=== PATIENT | male | born 1985 | race Caucasian/White ===

== ENCOUNTER 2021-11-01 00:22 | Emergency (ER) | payer OTHER ==
[~2021-11-01] VITALS: Ht 177.8 cm; Wt 105.9 kg
[2021-11-01 00:40] VITALS: BP 165/91
== END 2021-11-01 05:16 | disposition left against medical advice (07) ==
LOC: ER 00:22
DX: R61 Generalized hyperhidrosis (principal); F12.90 Cannabis use, unspecified, uncomplicated
CPT/HCPCS: 99281